=== PATIENT | male | born 1995 | race Caucasian/White ===

== ENCOUNTER 2016-09-16 16:28 | Inpatient (IN) | payer BC ==
[2016-09-16 16:39] VITALS: BMI 35.3
--- NOTE | 2016-09-16 18:00 | PDOC ---
History of Present Illness - General Chief Complaint: Pain Stated Complaint: STOMACH PAIN ? gall stones Time Seen by Provider: 09/16/16 17:42 History Source: Patient Exam Limitations: No Limitations - History of Present Illness Initial Comments: 09/16/16 17:54 Patient is a 21 year old male with PMH of Sleeve gastrectomy in November 2014 who presents to ED with severe epigastric pain. He states the pain started after he ate Ribs w/ rice & beans yesterday. He woke up this morning with mild pain, ate cereal for breakfast and later on today the pain increased and is now severe. It is epigastric but radiates towards his right side. He describes it as sharp, 10/10 in severity, mildly alleviated by laying flat and exacerbated with movement and deep breaths. He also describes having some chills, nausea and lightheadedness as well. Patient denies fever, SNYDER, CP, SOB, vomiting, constipation, diarrhea or any sick contacts. He was in this ED in march for similar symptoms. US showed gallstones in fundus as well as a possible mass. Patient was strongly urged to f/u with GI & Surgical specialists but states "he never got around to it". Past History - Travel Traveled outside of the country in the last 30 days: No Close contact w/someone who was outside of country & ill: No - Past Medical History Allergies/Adverse Reactions: Allergies Allergy/AdvReac Type Severity Reaction Status Date / Time No Known Allergies Allergy Verified 09/16/16 16:35 Home Medications: Ambulatory Orders NK [No Known Home Medication] 04/21/16 Other medical history: morbid obestiy,gall stones - Surgical History Abdominal Surgery: Yes (Gastric sleeve, 12/04/2014) - Immunization History Immunization Up to Date: Yes - Psycho/Social/Smoking Cessation Hx Anxiety: No Suicidal Ideation: No Smoking Status: Yes (Hookah) Smoking History: Never smoked Have you smoked in the past 12 months: Yes Information on smoking cessation initiated: No Hx Alcohol Use: No Drug/Substance Use Hx: No Substance Use Type: None Review of Systems - Review of Systems Able to Perform ROS?: Yes Is the patient limited Serbian proficient: No Constitutional: Yes: Chills, Loss of Appetite ABD/GI: Yes: Nausea, Abdominal cramping Neurological: Yes: Dizziness *Physical Exam - Vital Signs Last Vital Signs Temp Pulse Resp BP Pulse Ox 97.8 F 74 18 135/88 100 09/16/16 16:36 09/16/16 16:36 09/16/16 16:36 09/16/16 16:36 09/16/16 16:36 - Physical Exam General Appearance: Yes: Appropriately Dressed, Apparent Distress, Obese HEENT: positive: EOMI, PHANI, Normal ENT Inspection Neck: positive: Trachea midline, Normal Thyroid, Supple Respiratory/Chest: positive: Lungs Clear, Normal Breath Sounds Cardiovascular: positive: Regular Rhythm, Regular Rate, S1, S2 Gastrointestinal/Abdominal: positive: Normal Bowel Sounds, Tender, Soft, Other ( (+) Alvarado Sign) Musculoskeletal: positive: Normal Inspection Extremity: positive: Normal Inspection, Normal Range of Motion Integumentary: positive: Normal Color, Dry, Warm Neurologic: positive: Fully Oriented, Alert, Normal Mood/Affect, Motor Strength 5/5 ED Treatment Course - LABORATORY CBC & Chemistry Diagram: 09/16/16 18:20 09/16/16 18:20 Medical Decision Making - Medical Decision Making 09/16/16 18:09 Ordered CBC, CMP, Amylase, Lipase, Blood Cx. Abdominal US ordered. Patient made NPO. Started IVF NS, Zofran and Morphine. *DC/Admit/Observation/Transfer Diagnosis at time of Disposition: Biliary colic
[2016-09-16] MEDS ORDERED: SODIUM CHLORIDE 1,000 ML IV STA (18:02)
[2016-09-16] MEDS ORDERED: ONDANSETRON 4 MG/2 ML VIAL IVPUSH ONE (18:08)
[2016-09-16] MEDS ORDERED: morphine CARPU-JECT 4 MG/1 ML DISP.SYRIN IVPUSH ONE ×2 (18:08→19:59)
[2016-09-16] MEDS ORDERED: morphine CARPU-JECT 4 MG/1 ML DISP.SYRIN ONE ×2 (18:26→19:48)
[2016-09-16] MEDS ORDERED: ONDANSETRON 4 MG/2 ML VIAL ONE (18:26)
[2016-09-16 18:41] LABS: BASOPHIL 0.7 % (0-2.0); EOSINOPHIL 0.4 % (0-4.5); MCHC 33.7 g/dl (32.0-35.9); MEAN CELL VOLUME 83.1 fl (80-96); MEAN PLT VOLUME 9.8 fl (7.5-11.1); NEUTROPHILS 81.1 % (42.8-82.8); PLATELET COUNT 203 K/MM3 (134-434); RDW 14.1 % (11.9-15.9); WHITE BLOOD COUNT 15.2 K/mm3 (4.0-10.0)
--- NOTE | 2016-09-16 18:44 | PDOC ---
Attending Attestation - Resident Resident Name: Sudhakar Gomez - ED Attending Attestation I have performed the following: I have examined & evaluated the patient, The case was reviewed & discussed with the resident, I agree w/resident's findings & plan, Exceptions are as noted - HPI HPI: 09/16/16 18:43 21-year-old male with past mental history of gastric sleeve performed 2 years ago, gallbladder stones presents to the emergency department for right upper quadrant pain after eating [place] food yesterday. Reports some nausea and vomiting but denies fevers. Pain is constant. - Physicial Exam PE: 09/16/16 18:44 GENERAL: Awake, alert, and fully oriented, in no acute distress. HEAD: No signs of trauma EYES: PERRLA, EOMI, sclera anicteric, conjunctiva clear ENT: Auricles normal inspection, hearing grossly normal, nares patent, oropharynx clear without exudates. NECK: Normal ROM, supple, no lymphadenopathy, JVD, or masses LUNGS: Breath sounds equal, clear to auscultation bilaterally. No wheezes, and no crackles HEART: Regular rate and rhythm, normal S1 and S2, no murmurs, rubs or gallops ABDOMEN: TTP epigastric and RUQ. Alvarado sign positive. Soft, normoactive bowel sounds. No guarding, no rebound. No masses EXTREMITIES: Normal range of motion, no edema. No clubbing or cyanosis. No cords, erythema, or tenderness NEUROLOGICAL: Cranial nerves II through XII grossly intact. Normal speech, normal gait SKIN: Warm, Dry, normal turgor, no rashes or lesions noted. - Medical Decision Making 09/16/16 18:44 We'll need to rule out acute cholecystitis versus biliary colic. Low threshold CAT scan to rule out bariatric complications. Labs, pain control. Start with ultrasound.
[2016-09-16 18:53] LABS: URINE APPEARANCE CLEAR; URINE COLOR YELLOW; URINE GLUCOSE (UA) NEGATIVE (NEGATIVE)
[2016-09-16 18:54] LABS: URINE BILIRUBIN NEGATIVE (NEGATIVE); URINE BLOOD NEGATIVE (NEGATIVE); URINE KETONE NEGATIVE (NEGATIVE); URINE NITRITE NEGATIVE (NEGATIVE); URINE PROTEIN NEGATIVE (NEGATIVE); URINE UROBILINOGEN 4.0 E.U/dl E.U./dl (0.2-1.0)
[2016-09-16 18:55] LABS: URINE LEUK ESTERASE NEGATIVE (NEGATIVE)
[2016-09-16 19:04] LABS: ALBUMIN 4.1 g/dl (3.4-5.0); AMYLASE 46 U/L (25-115); ANION GAP 10 (8-16); CALCIUM 9.3 mg/dL (8.5-10.1); CO2 30 mmol/L (21-32); CREATININE 0.8 mg/dL (0.7-1.3); GLUCOSE,RANDOM 97 mg/dL (74-106); SGPT/ALT 45 U/L (12-78)
[2016-09-16 19:05] LABS: ALK PHOS 103 U/L (45-117); BILIRUBIN,TOTAL 1.3 mg/dL (0.2-1.0); TOT PROT 8.1 g/dl (6.4-8.2)
[2016-09-16 19:06] LABS: SGOT/AST 102 U/L (15-37)
[2016-09-16] MEDS ORDERED: PIPERACILLIN/TAZOB 3.375 GM/50 ML PRE-DOCKED IVPB ONE (21:02)
[2016-09-16] MEDS ORDERED: PIPERACILLIN/TAZOB 3.375 GM 50 ML IVPB ONE (21:17)
--- NOTE | 2016-09-16 21:20 | PDOC ---
*Physical Exam - Vital Signs Last Vital Signs Temp Pulse Resp BP Pulse Ox 97.8 F 74 18 135/88 100 09/16/16 16:36 09/16/16 16:36 09/16/16 16:36 09/16/16 16:36 09/16/16 16:36 <Stephon Chaparro - Last Filed: 09/16/16 21:19> - Vital Signs Last Vital Signs Temp Pulse Resp BP Pulse Ox 97.8 F 74 18 135/88 100 09/16/16 16:36 09/16/16 16:36 09/16/16 16:36 09/16/16 16:36 09/16/16 16:36 <[email or web address] - Last Filed: 09/16/16 21:55> ED Treatment Course - LABORATORY CBC & Chemistry Diagram: 09/16/16 18:20 09/16/16 18:20 - ADDITIONAL ORDERS Additional order review: Laboratory Results 09/16/16 09/16/16 18:24 18:20 Sodium 139 Potassium 4.4 Chloride 99 Carbon Dioxide 30 Anion Gap 10 BUN 10 Creatinine 0.8 Creat Clearance w eGFR > 60 Random Glucose 97 Calcium 9.3 Total Bilirubin 1.3 H AST 102 H D ALT 45 D Alkaline Phosphatase 103 Total Protein 8.1 Albumin 4.1 Total Amylase 46 Lipase 101 Urine Color Yellow Urine Appearance Clear Urine pH 5.0 Ur Specific Dorena 1.017 Urine Protein Negative Urine Glucose (UA) Negative Urine Ketones Negative Urine Blood Negative Urine Nitrite Negative Urine Bilirubin Negative Urine Urobilinogen 4.0 e.u/dl Ur Leukocyte Esterase Negative 09/16/16 18:20 RBC 5.72 H MCV 83.1 MCHC 33.7 RDW 14.1 D MPV 9.8 Neutrophils % 81.1 Lymphocytes % 12.2 Monocytes % 5.6 Eosinophils % 0.4 D Basophils % 0.7 - RADIOLOGY Radiology Studies Ordered: Category Date Time Status HIDA SCAN [NM] Stat Nuclear 09/16/16 21:01 Ordered - Medications Given in the ED: ED Medications Discontinued Medications Generic Name Dose Route Start Last Admin Trade Name Freq PRN Reason Stop Dose Admin Sodium Chloride 1,000 mls @ 1,000 mls/hr 09/16/16 18:02 09/16/16 18:41 Normal Saline - IV 09/16/16 19:01 1,000 mls/hr ASDIR STA Administration Morphine Sulfate 4 mg 09/16/16 18:08 09/16/16 18:41 Morphine Injection - IVPUSH 09/16/16 18:09 4 mg ONCE ONE Administration Morphine Sulfate 4 mg 09/16/16 19:59 09/16/16 20:03 Morphine Injection - IVPUSH 09/16/16 20:00 4 mg ONCE ONE Administration Ondansetron HCl 4 mg 09/16/16 18:08 09/16/16 18:41 Zofran Injection IVPUSH 09/16/16 18:09 4 mg ONCE ONE Administration Piperacillin Sod/Tazobactam Sod 3.375 gm 09/16/16 21:02 09/16/16 21:17 Zosyn 3.375gm Ivpb (Pre-Docked) IVPB 09/16/16 21:03 3.375 gm ONCE ONE Administration <Stephon Chaparro - Last Filed: 09/16/16 21:19> - LABORATORY CBC & Chemistry Diagram: 09/16/16 18:20 09/16/16 18:20 - ADDITIONAL ORDERS Additional order review: Laboratory Results 09/16/16 09/16/16 18:24 18:20 Sodium 139 Potassium 4.4 Chloride 99 Carbon Dioxide 30 Anion Gap 10 BUN 10 Creatinine 0.8 Creat Clearance w eGFR > 60 Random Glucose 97 Calcium 9.3 Total Bilirubin 1.3 H AST 102 H D ALT 45 D Alkaline Phosphatase 103 Total Protein 8.1 Albumin 4.1 Total Amylase 46 Lipase 101 Urine Color Yellow Urine Appearance Clear Urine pH 5.0 Ur Specific Dorena 1.017 Urine Protein Negative Urine Glucose (UA) Negative Urine Ketones Negative Urine Blood Negative Urine Nitrite Negative Urine Bilirubin Negative Urine Urobilinogen 4.0 e.u/dl Ur Leukocyte Esterase Negative 09/16/16 18:20 RBC 5.72 H MCV 83.1 MCHC 33.7 RDW 14.1 D MPV 9.8 Neutrophils % 81.1 Lymphocytes % 12.2 Monocytes % 5.6 Eosinophils % 0.4 D Basophils % 0.7 - RADIOLOGY Radiograph Interpretation: 09/16/16 21:54 Abdominal ultrasound as reviewed by Dr. Moreira reports cholelithiasis. - Medications Given in the ED: ED Medications Discontinued Medications Generic Name Dose Route Start Last Admin Trade Name Freq PRN Reason Stop Dose Admin Sodium Chloride 1,000 mls @ 1,000 mls/hr 09/16/16 18:02 09/16/16 18:41 Normal Saline - IV 09/16/16 19:01 1,000 mls/hr ASDIR STA Administration Morphine Sulfate 4 mg 09/16/16 18:08 09/16/16 18:41 Morphine Injection - IVPUSH 09/16/16 18:09 4 mg ONCE ONE Administration Morphine Sulfate 4 mg 09/16/16 19:59 09/16/16 20:03 Morphine Injection - IVPUSH 09/16/16 20:00 4 mg ONCE ONE Administration Ondansetron HCl 4 mg 09/16/16 18:08 09/16/16 18:41 Zofran Injection IVPUSH 09/16/16 18:09 4 mg ONCE ONE Administration Piperacillin Sod/Tazobactam Sod 3.375 gm 09/16/16 21:02 09/16/16 21:17 Zosyn 3.375gm Ivpb (Pre-Docked) IVPB 09/16/16 21:03 3.375 gm ONCE ONE Administration <Ariane Lemus - Last Filed: 09/16/16 21:55> Medical Decision Making - Medical Decision Making 09/16/16 21:19 Ultrasound with gallstones. CBC, BMP 09/16/16 18:20 09/16/16 18:20 CMP Sodium 139 mmol/L (136-145) 09/16/16 18:20 Potassium 4.4 mmol/L (3.5-5.1) 09/16/16 18:20 Chloride 99 mmol/L (98-107) 09/16/16 18:20 Carbon Dioxide 30 mmol/L (21-32) 09/16/16 18:20 Anion Gap 10 (8-16) 09/16/16 18:20 BUN 10 mg/dL (7-18) 09/16/16 18:20 Creatinine 0.8 mg/dL (0.7-1.3) 09/16/16 18:20 Creat Clearance w eGFR > 60 (>60) 09/16/16 18:20 Random Glucose 97 mg/dL (74-106) 09/16/16 18:20 Calcium 9.3 mg/dL (8.5-10.1) 09/16/16 18:20 Total Bilirubin 1.3 mg/dL (0.2-1.0) H 09/16/16 18:20 AST 102 U/L (15-37) H D 09/16/16 18:20 ALT 45 U/L (12-78) D 09/16/16 18:20 Alkaline Phosphatase 103 U/L (45-117) 09/16/16 18:20 Total Protein 8.1 g/dl (6.4-8.2) 09/16/16 18:20 Albumin 4.1 g/dl (3.4-5.0) 09/16/16 18:20 Total Amylase 46 U/L (25-115) 09/16/16 18:20 Lipase 101 U/L (73-393) 09/16/16 18:20 WBC 15.2. Will need HIDA scan for further evaluation. Terese ordered. Had attempted to call Dr. Olson's service. Service had a busy tones. Multiple attempts were made. Tried calling Dr. Sharma's service, but was same number. Page placed out to Dr. Burton. 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 Case discussed with Dr. Graham. She accepts for med/surg obs. Case discussed in detail with admitting physician including history, physical exam and ancillary studies. Admitting physician has assumed care for the patient, will follow all pending diagnostics and will complete the evaluation and treatment. <Stephon Cahparro - Last Filed: 09/16/16 21:19> - Medical Decision Making 09/16/16 20:10, 20:35 Multiple phone calls placed to Dr. Olson via . However, unable to reach the answering service because the phone is off the hook. There are no other phone numbers to contact him with. Spoke to Dr. Odonnell and was advised to call Dr. Burton. 20:[address] Burton on his cell phone. Call was returned promptly and case was discussed. 20:50 Microblog sent to [facility] and case was discussed. Pt seen in ED. <Ariane Lemus - Last Filed: 09/16/16 21:55> *DC/Admit/Observation/Transfer - Discharge Dispostion Admit: Yes <Stephon Chaparro - Last Filed: 09/16/16 21:19> - Attestations Scribe Attestion: 09/16/16 21:54 Documentation prepared by Ariane Lemus, acting as medical accountant for Stephon Chaparro MD. <Ariane Lemus - Last Filed: 09/16/16 21:55> Diagnosis at time of Disposition: Biliary colic
[2016-09-16] MEDS ORDERED: morphine CARPU-JECT 2 MG/1 ML DISP.SYRIN IVPUSH PRN (22:41)
[2016-09-16] MEDS ORDERED: ONDANSETRON 4 MG/2 ML VIAL IVPB PRN (22:41)
[2016-09-16] MEDS: DEXTROSE 5%-NORMAL SALINE 1,000 ML IV SCH (22:59)
--- NOTE | 2016-09-16 23:28 | HP ---
<Marine Michel - Last Filed: 09/17/16 00:31> CHIEF COMPLAINT: Abdominal pain x1 day. PCP: N/A HISTORY OF PRESENT ILLNESS: The patient is a 23 yo M with prior hx of cholelithiasis, that presents to the ED complaining of RUQ abdominal pain 10/10 in intensity, episodic, associated with nausea. The pain is similar to the episode he had in Mar 2013 when he was originally diagnosed with cholelithiasis and was advised to get elective cholecystectomy. He denies fevers, chills, diarrhea, constipation, vomiting. No hx of reaction to anesthesia in the family, [place] or CVA. Recent Travel: None PAST MEDICAL HISTORY: Obesity PAST SURGICAL HISTORY: Gastric Sleeve November Social History: Smoking: Hookah smoker Alcohol: Denies Drugs: Denies Family History: Noncontributory Allergies No Known Allergies Allergy (Verified 09/16/16 16:35) HOME MEDICATIONS: Medication Instructions Recorded NK [No Known Home Medication] 04/21/16 REVIEW OF SYSTEMS CONSTITUTIONAL: Absent: fever, chills, diaphoresis, generalized weakness, malaise, loss of appetite, weight change HEENT: Absent: rhinorrhea, nasal congestion, throat pain, throat swelling, difficulty swallowing, mouth swelling, ear pain, eye pain, visual changes CARDIOVASCULAR: Absent: chest pain, syncope, palpitations, irregular heart rate, lightheadedness , peripheral edema RESPIRATORY: Absent: cough, shortness of breath, dyspnea with exertion, orthopnea, wheezing, stridor, hemoptysis GASTROINTESTINAL: + abdominal pain. + nausea. Absent: abdominal distension, vomiting, diarrhea, constipation, melena, hematochezia GENITOURINARY: Absent: dysuria, frequency, urgency, hesitancy, hematuria, flank pain, genital pain MUSCULOSKELETAL: Absent: myalgia, arthralgia, joint swelling, back pain, neck pain SKIN: Absent: rash, itching, pallor HEMATOLOGIC/IMMUNOLOGIC: Absent: easy bleeding, easy bruising, lymphadenopathy, frequent infections ENDOCRINE: Absent: unexplained weight gain, unexplained weight loss, heat intolerance, cold intolerance NEUROLOGIC: Absent: headache, focal weakness or paresthesias, dizziness, unsteady gait, seizure, mental status changes, bladder or bowel incontinence PSYCHIATRIC: Absent: anxiety, depression, suicidal or homicidal ideation, hallucinations. PHYSICAL EXAMINATION GENERAL: + Obese. Awake, alert, and fully oriented, in no acute distress. HEAD: Normal with no signs of trauma. EYES: Pupils equal, round and reactive to light, extraocular movements intact, sclera anicteric, conjunctiva clear. No lid lag. EARS, NOSE, THROAT: Ears normal, nares patent, oropharynx clear without exudates. Moist mucous membranes. NECK: Normal range of motion, supple without lymphadenopathy, JVD, or masses. LUNGS: Breath sounds equal, clear to auscultation bilaterally. No wheezes, and no crackles. No accessory muscle use. HEART: Regular rate and rhythm, normal S1 and S2 without murmur, rub or gallop. ABDOMEN: + RUQ tenderness to palpation with positive lubin sign. No guarding, no rebound, no masses. No hepatomegaly or splenomegaly. MUSCULOSKELETAL: Normal range of motion at all joints. No bony deformities or tenderness. No CVA tenderness. UPPER EXTREMITIES: 2+ pulses, warm, well-perfused. No cyanosis. No clubbing. Cap refill <2 seconds. No peripheral edema. LOWER EXTREMITIES: 2+ pulses, warm, well-perfused. No calf tenderness. No peripheral edema. NEUROLOGICAL: Cranial nerves II-XII intact. Normal speech. Normal gait. PSYCHIATRIC: Cooperative. Good eye contact. Appropriate mood and affect. SKIN: Warm, dry, normal turgor, no rashes or lesions noted. Imaging: US- Limited Adbomen Cholelithiasis. There is no definite evidence of acute cholecystitis. Early acute cholecystitis may not be demonstrable on sonography or CT. No biliary tract dilatation is identified. Gallbladder US Enlarged liver. Adherent debris/stones in the fundus and possibility of mass cannot be fully excluded. ASSESSMENT/PLAN: 1.) Biliary colic in otherwise healthy patient with prior hx of cholelithiasis. US shows no evidence of any acute cholelithiasis however patient does have mild leukocytosis and elevation of bilirubin levels. - NPO - IVF - Pain control with IV narcotics - HIDA scan - Monitor liver enzymes and bilirubin level in the AM - Will call surgical evaluation if HIDA scan is abnormal for possible laparoscopic cholecystectomy 2.) DVT PPx - SCDs, patient is ambulatory Admit for observation. Documentation prepared by Marine Michel, acting as registered medical assistant for Charis Graham MD. <Charis Graham - Last Filed: 09/17/16 03:44> Visit type - Emergency Visit Emergency Visit: Yes ED Registration Date: 09/16/16 Care time: The patient presented to the Emergency Department on the above date and was hospitalized for further evaluation of their emergent condition. - New Patient This patient is new to me today: Yes Date on this admission: 09/16/16 - Critical Care Critical Care patient: No
[2016-09-17] MEDS ORDERED: PIPERACILLIN/TAZOB 2.25 GM 50 ML IVPB SCH (06:00)
[2016-09-17 08:01] LABS: BASOPHIL 0.4 % (0-2.0); EOSINOPHIL 0.7 % (0-4.5); MCH 28.3 pg (25.7-33.7); MCHC 34.1 g/dl (32.0-35.9); MEAN CELL VOLUME 82.9 fl (80-96); MEAN PLT VOLUME 10.1 fl (7.5-11.1); NEUTROPHILS 71.4 % (42.8-82.8); PLATELET COUNT 158 K/MM3 (134-434); RDW 13.7 % (11.9-15.9); WHITE BLOOD COUNT 6.8 K/mm3 (4.0-10.0)
[2016-09-17 08:35] LABS: ALBUMIN 3.3 g/dl (3.4-5.0); ANION GAP 8 (8-16); CALCIUM 8.6 mg/dL (8.5-10.1); CO2 28 mmol/L (21-32); CREATININE 0.8 mg/dL (0.7-1.3); GLUCOSE,RANDOM 83 mg/dL (74-106); SGOT/AST 116 U/L (15-37); SGPT/ALT 76 U/L (12-78)
[2016-09-17 08:37] LABS: ALK PHOS 98 U/L (45-117); BILIRUBIN,TOTAL 1.7 mg/dL (0.2-1.0); TOT PROT 6.8 g/dl (6.4-8.2)
[2016-09-17] MEDS: DEXTROSE 5%-NORMAL SALINE 1,000 ML IV SCH (08:56)
--- NOTE | 2016-09-17 08:59 | PN ---
Progress Note (short form) - Note Progress Note: ID Severe RUQ pain 2nd such episode told it was his gallbladder Selected Entries 09/17/16 07:14 Temperature 98.5 F Pulse Rate 55 L Respiratory 18 Rate Blood Pressure 129/57 Abd Soft tenderness RUQ Ryan positive Laboratory Tests 09/16/16 09/16/16 09/17/16 18:20 18:24 06:30 WBC 15.2 H Hgb 16.0 Hct 47.5 Plt Count 203 BUN 7 D Creatinine 0.8 ALT 76 D Ur Leukocyte Esterase Negative Assessment biliary disease ? passed stone/ Cholcystitis Plan Ceftriaxone and metronidazole Dr Olson to see for cholecystectomy Zi SANDS Problem List - Problems (1) Cholecystitis Code(s): K81.9 - CHOLECYSTITIS, UNSPECIFIED (2) Obesity Code(s): E66.9 - OBESITY, UNSPECIFIED
--- NOTE | 2016-09-17 09:18 | PN ---
Progress Note, Physician - Current Medication List Current Medications: Active Medications Dextrose/Sodium Chloride (D5-Ns -) 1,000 mls @ 125 mls/hr IV ASDIR DYLON Last Admin: 09/17/16 08:56 Dose: 125 mls/hr Ceftriaxone Sodium (Rocephin 2gm Ivpb (Pre-Docked)) 100 mls @ 200 mls/hr IVPB DAILY DYLON Metronidazole (Flagyl 500mg Premixed Ivpb -) 100 mls @ 100 mls/hr IVPB Q8H-IV DYLON Morphine Sulfate (Morphine Injection -) 1 mg IVPUSH Q4H PRN PRN Reason: PAIN Ondansetron HCl (Zofran Injection) 4 mg IVPB Q4H PRN PRN Reason: NAUSEA AND/OR VOMITING - Objective Vital Signs: Vital Signs Temperature 98.5 F 09/17/16 07:14 Pulse Rate 55 L 09/17/16 07:14 Respiratory Rate 18 09/17/16 07:14 Blood Pressure 129/57 09/17/16 07:14 O2 Sat by Pulse Oximetry (%) 100 09/16/16 16:36 Eyes: Yes: WNL, Conjunctiva Clear HENT: Yes: WNL, Atraumatic, Normocephalic Neck: Yes: WNL, Supple, Trachea Midline Cardiovascular: Yes: WNL, Regular Rate and Rhythm Respiratory: Yes: WNL, Regular, CTA Bilaterally Gastrointestinal: Yes: WNL, Normal Bowel Sounds Musculoskeletal: Yes: WNL Extremities: Yes: WNL Edema: No Integumentary: Yes: WNL Neurological: Yes: WNL, Alert, Oriented ...Motor Strength: WNL Psychiatric: Yes: WNL Labs: CBC, BMP 09/17/16 06:30 09/17/16 06:30 Impression/Plan Impression/Plan: 21 year old with gastric sleeve admitted for billiary colic -has known history of cholelithiasis and had billiary colic 6 months ago -again presents with identical symptoms -no evidence of cholycystisis on sono -for lap julien later today Visit type - Emergency Visit Emergency Visit: Yes ED Registration Date: 09/16/16 Care time: The patient presented to the Emergency Department on the above date and was hospitalized for further evaluation of their emergent condition. - New Patient This patient is new to me today: Yes Date on this admission: 09/17/16 - Critical Care Critical Care patient: No
--- NOTE | 2016-09-17 09:24 | CONSULT ---
Consult Consult Specialty:: Surgery Reason for Consultation:: Acute cholecystitis, recurrent biliary colic - History of Present Illness History of Present Illness: 21 male s/p sleeve gastrectomy in 2015 Presents for RUQ pain x 1- 2days Had similar episode in the past Was advised to have cholecystectomy but never followed up with surgery + Nausea - History Source History Provided By: Patient, Medical Record Limitations to Obtaining History: No Limitations - Past Surgical History Additional Surgical History: sleeve gastrectomy - Alcohol/Substance Use Hx Alcohol Use: No - Smoking History Smoking history: Never smoked Have you smoked in the past 12 months: Yes - Social History ADL: Independent Home Medications - Allergies Allergies/Adverse Reactions: Allergies Allergy/AdvReac Type Severity Reaction Status Date / Time No Known Allergies Allergy Verified 09/16/16 16:35 - Home Medications Home Medications: Ambulatory Orders Oxycodone HCl/Acetaminophen [Percocet 5-325 mg Tablet] 1 - 2 tab PO Q6H #28 tab MDD 4 09/17/16 Family Disease History - Family Disease History Family History: Unremarkable Review of Systems - Review of Systems Constitutional: denies: Chills, Fever Neck: reports: No Symptoms Cardiovascular: denies: Chest Pain Respiratory: denies: Cough Gastrointestinal: reports: Abdominal Pain (RUQ), Nausea. denies: Diarrhea Genitourinary: reports: No Symptoms Neurological: denies: Change in LOC Pain Intensity: 5 Physical Exam Vital Signs: Vital Signs Temperature 98.5 F 09/17/16 07:14 Pulse Rate 55 L 09/17/16 07:14 Respiratory Rate 18 09/17/16 07:14 Blood Pressure 129/57 09/17/16 07:14 O2 Sat by Pulse Oximetry (%) 100 09/16/16 16:36 Constitutional: Yes: Calm Neck: Yes: Supple Cardiovascular: Yes: Regular Rate and Rhythm Respiratory: Yes: CTA Bilaterally Gastrointestinal: Yes: Soft, Tenderness (RUQ). No: Distention, Tenderness, Rebound Neurological: Yes: Alert, Oriented Labs: CBC, BMP 09/17/16 06:30 09/17/16 06:30 Imaging - Results Ultrasound: Report Reviewed, Image Reviewed Problem List - Problems (1) Acute cholecystitis due to biliary calculus Code(s): K80.00 - CALCULUS OF GALLBLADDER W ACUTE CHOLECYST W/O OBSTRUCTION (2) Recurrent biliary colic Code(s): K80.20 - CALCULUS OF GALLBLADDER W/O CHOLECYSTITIS W/O OBSTRUCTION Assessment/Plan 21 male with acute cholecystitis, recurrent biliary colic NPO Antibiotics For Laparoscopic possible open cholecystectomy Risks and benefits explained Understands and agrees
[2016-09-17] MEDS ORDERED: METRONIDAZOLE 500 MG PREMIXED 100 ML IVPB SCH (10:00)
[2016-09-17] MEDS ORDERED: CEFTRIAXONE 100 ML IVPB SCH (10:00)
--- NOTE | 2016-09-17 10:12 | CONS ---
DATE OF CONSULTATION: HISTORY: This is a 21-year-old male admitted through the emergency room with chief complaint of severe 10/10 abrupt onset of pain predominantly in the right upper quadrant associated with nausea. He has a history of a gastric sleeve operation in 2014 while he was staying with family in the [place] area. At that time, he weighed nearly 550 pounds. He describes a similar episode of pain to the one he comes with now several years ago and was told he had gallstones and advised a cholecystectomy. He had no further follow up for this problem now. He denies any fever or chills at the current time and notes that he still has pain, although it has subsided somewhat since admission. PAST MEDICAL HISTORY: Includes obesity with gastric sleeve surgery. CURRENT MEDICATIONS: None. RECENT TRAVEL: None. SOCIAL HISTORY: Smokes a hookah. No history of substance abuse. HIV tested recently negative. Denies alcohol or drugs. 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 Lives with his family. FAMILY HISTORY: Noncontributory. REVIEW OF SYSTEMS: Noncontributory all systems. PHYSICAL EXAMINATION: General: He is an alert male in no acute distress. Vital Signs: Temperature 98.5, pulse 55, blood pressure 130/57, respirations 18. Skin: Anicteric. Lungs: Clear. Heart: S1, S2. Regular rhythm. Abdomen: Obese. Positive bowel sounds. Soft, nontender. Tenderness noted in the right upper quadrant with positive Alvarado sign elicited. The bilirubin was 1.7 with an AST of 116, ALT 76, alkaline phosphatase 98, white count 15.2, hemoglobin 16, platelets 203. Urinalysis negative for leukocyte esterase. Two sets of blood cultures drawn. ASSESSMENT: A 21-year-old male with a history of morbid obesity status post gastric sleeve operation 2014 in [place] who presents now with recurrent episode of right upper quadrant pain with possible Alvarado sign and white count and elevated liver enzymes. The possibility of passing a gallstone and/or acute cholecystitis considered. Advised empiric therapy with ceftriaxone and metronidazole. Suspect patient going to require cholecystectomy. A surgical consult has been requested. ANGELA LEMONS M.D. MIRNA/[id number]
[2016-09-17] MEDS ORDERED: HYDROmorphone HCL CARPU-JECT 1 MG/1 ML DISP.SYRIN IVPB PRN ×2 (12:33→15:07)
[2016-09-17] MEDS ORDERED: SODIUM CHLORIDE 1,000 ML IV SCH (12:45)
[2016-09-17] MEDS ORDERED: PROPOFOL 20 ML ONE (12:45)
[2016-09-17] MEDS ORDERED: ROCURONIUM BROMIDE 50 MG/5 ML VIAL ONE (12:46)
[2016-09-17] MEDS ORDERED: GLYCOPYRROLATE 0.2 MG/1 ML VIAL ONE ×2 (13:38)
[2016-09-17] MEDS ORDERED: NEOSTIGMINE METHYLSULFATE 0.5 MG/ML - 10 ML MDV ONE (13:38)
[2016-09-17] MEDS ORDERED: DEXAMETHASONE SOD PHOSPHATE 4 MG/1 ML VIAL ONE (13:39)
[2016-09-17] MEDS ORDERED: KETOROLAC TROMETHAMINE 30 MG/1 ML VIAL ONE (13:39)
[2016-09-17] MEDS ORDERED: BUPIVACAINE HCL/PF 0.5% (5MG/ML) 10 ML VIAL ONE (14:08)
[2016-09-17] MEDS ORDERED: BUPIVACAINE HCL/PF 0.5% (5MG/ML) 10 ML VIAL IJ ONE (14:12)
--- NOTE | 2016-09-17 14:24 | OP ---
Operative Note - Note: Operative Date: 09/17/16 Pre-Operative Diagnosis: Acute cholecystitis, recurrent biliary colic Operation: Laparoscopic cholecystectomy, lysis of adhesions Post-Operative Diagnosis: Other (Acute cholecystitis, recurrent biliary colic, intraabdominal adhesions) Surgeon: Joao Olson Public Speaking Teacher: Cora Kessler Anesthesia: General Specimens Removed: Gallbladder Estimated Blood Loss (mls): 30 Operative Report Dictated: Yes
[2016-09-17] MEDS ORDERED: ONDANSETRON 4 MG/2 ML VIAL IVPUSH PRN (14:25)
[2016-09-17] MEDS ORDERED: PROMETHAZINE HCL 25 MG/1 ML VIAL IVPUSH PRN (14:25)
[2016-09-17] MEDS ORDERED: oxyCODONE HCL 5 MG TABLET PO PRN (14:25)
--- NOTE | 2016-09-17 15:01 | SURG ---
Surgery Heel Cementer Machine Note Heel Cementer Machine: Cora Kessler PA-C Date of Service: 09/17/16 Diagnosis: Acute cholecystitis, recurrent biliary colic Procedure: Laparoscopic cholecystectomy, lysis of adhesions I was present for the entirety of the operative procedure. For further detail, please refer to operative report. Visit type - Case Type Case Type: ED Admission - New patient This patient is new to me today: Yes Date on this admission: 09/17/16
[2016-09-17] MEDS ORDERED: ONDANSETRON 4 MG/2 ML VIAL IVPB PRN (15:07)
[2016-09-17] MEDS: SODIUM CHLORIDE 1,000 ML IV SCH (15:55)
--- NOTE | 2016-09-17 16:01 | OP ---
OPERATIVE REPORT DATE OF OPERATION: 09/17/2016 PROCEDURE: Laparoscopic cholecystectomy and laparoscopic lysis of adhesions SURGEON: Joao Olson MD [employer] OFFICER: Cora Kessler PREOPERATIVE DIAGNOSIS: Acute cholecystitis. POSTOPERATIVE DIAGNOSIS: Acute cholecystitis and intraabdominal adhesions. SPECIMEN: Gallbladder. ESTIMATED BLOOD LOSS: 30 mL DRAINS: None. ANESTHESIA: GET. REASON FOR PROCEDURE: This is a 21-year-old gentleman who had a previous history of a sleeve gastrectomy in March 2015 in [place]. He had since developed symptoms of cholecystitis and biliary colic in the past but had never pursued surgical intervention. He presents to the emergency room with right upper quadrant pain. Imaging demonstrates gallstones and findings consistent with acute cholecystitis. He was admitted by the hospital service. Because of his findings of cholecystitis and recurrent colic , he was consented for a laparoscopic cholecystectomy and possible open. The risks and benefits of the procedure were explained. These included bleeding, infection, hernia, HI, DVT, PE, injury to surrounding structures including the bowel, colon , liver, bile ducts, nerve injury, vessel injury, retained stones, bile leak as some other complications. He understood and signed informed consent. DESCRIPTION OF PROCEDURE: Patient was placed supine on the operating room table. He underwent general endotracheal intubation. The abdomen was prepped and draped in the usual sterile fashion. A timeout was performed. A supraumbilical incision was made, and a 5-mm optical trocar was placed under direct visualization with the laparoscope. Pneumoperitoneum was established. Immediately, it was noted that there were dense omental adhesions overlying the right upper quadrant. Because of this, lysis of adhesions needed to be performed. In order to do this, a 5-mm optical trocar was placed in the left lateral abdominal wall. Using the harmonic scalpel, all adhesions were carefully lysed from the abdominal wall. These included adhesions as well as omentum densely adherent to the abdominal wall. No bowel or visceral injury was noted as the adhesions were adherent only to the omentum. After the window was created to gain access to the gallbladder in the right upper quadrant, a 5-mm trocar was placed in the subxiphoid area, and two 5-mm trocars were placed in the right subcostal region. The 5-mm supraumbilical trocar was replaced with a 12-mm trocar. The patient was placed in reverse Trendelenburg, right-side up position. The gallbladder was grasped cephalad and laterally. The overlying peritoneum was dissected. The cystic duct followed by the cystic artery was circumferentially dissected, clipped and transected. The gallbladder was removed from the liver bed using electrocautery. Hemostasis was achieved. The gallbladder was placed in an EndoCatch bag. Copious irrigation and suction was performed until clear. A Surgicel dressing was placed over the gallbladder fossa to aid with hemostasis. The gallbladder was removed via the supraumbilical trocar site. The fascia was then closed at the site using a 0 Vicryl suture with a Ras-Arturo device laparoscopically. Marcaine was injected at all incision sites. 3-0 Vicryl was used to close the deep layer at the 12-mm trocar site. All skin incisions were closed using 4-0 Biosyn. Sterile dressings were applied. The patient tolerated the procedure well and transferred to recovery room in stable condition. Brittany WELCH/[id number] MTDD
[2016-09-17] MEDS: METRONIDAZOLE 500 MG PREMIXED 100 ML IVPB SCH (17:15)
[2016-09-18] MEDS: SODIUM CHLORIDE 1,000 ML IV SCH ×2 (00:44→10:13)
[2016-09-18] MEDS: METRONIDAZOLE 500 MG PREMIXED 100 ML IVPB SCH (02:11)
[2016-09-18 08:59] LABS: BASOPHIL 0.2 % (0-2.0); EOSINOPHIL 0.2 % (0-4.5); MCH 28.6 pg (25.7-33.7); MCHC 34.5 g/dl (32.0-35.9); MEAN PLT VOLUME 10.2 fl (7.5-11.1); NEUTROPHILS 75.2 % (42.8-82.8); PLATELET COUNT 144 K/MM3 (134-434); RDW 13.9 % (11.9-15.9); WHITE BLOOD COUNT 8.9 K/mm3 (4.0-10.0)
--- NOTE | 2016-09-18 09:28 | PN ---
Progress Note, Physician Chief Complaint: ID Day 1 post op lap cholecystectomy Doing well - Current Medication List Current Medications: Active Medications Enoxaparin Sodium (Lovenox -) 40 mg SQ DAILY [facility] Hydromorphone HCl (Dilaudid Injection -) 1 mg IVPB Q4H PRN PRN Reason: PAIN Ceftriaxone Sodium (Rocephin 2gm Ivpb (Pre-Docked)) 100 mls @ 200 mls/hr IVPB DAILY [facility] Metronidazole (Flagyl 500mg Premixed Ivpb -) 100 mls @ 100 mls/hr IVPB Q8H-IV [facility] Last Admin: 09/18/16 02:11 Dose: 100 mls/hr Sodium Chloride (Normal Saline -) 1,000 mls @ 125 mls/hr IV ASDIR [facility] Last Admin: 09/18/16 00:44 Dose: 125 mls/hr Ondansetron HCl (Zofran Injection) 4 mg IVPB Q4H PRN PRN Reason: NAUSEA AND/OR VOMITING Oxycodone HCl (Roxicodone -) 10 mg PO Q4H PRN PRN Reason: SEVERE PAIN Stop: 09/18/16 14:24 - Objective Vital Signs: Vital Signs Temperature 97.7 F 09/18/16 06:52 Pulse Rate 71 09/18/16 06:52 Respiratory Rate 18 09/18/16 06:52 Blood Pressure 127/72 09/18/16 06:52 O2 Sat by Pulse Oximetry (%) 98 09/18/16 00:00 Constitutional: Yes: Well Nourished, No Distress Neck: Yes: WNL, Supple Cardiovascular: Yes: Regular Rate and Rhythm, S1, S2 Respiratory: Yes: WNL, Regular, CTA Bilaterally Gastrointestinal: Yes: Soft Labs: CBC, BMP 09/18/16 06:45 Problem List - Problems (1) Cholecystitis Code(s): K81.9 - CHOLECYSTITIS, UNSPECIFIED (2) Obesity Code(s): E66.9 - OBESITY, UNSPECIFIED Assessment/Plan Microbiology 09/16/16 18:26 Blood - Peripheral Venous Blood Culture - Preliminary NO GROWTH OBTAINED AFTER 24 HOURS, INCUBATION TO CONTINUE FOR 4 DAYS. 09/16/16 18:26 Blood - Peripheral Venous Blood Culture - Preliminary NO GROWTH OBTAINED AFTER 24 HOURS, INCUBATION TO CONTINUE FOR 4 DAYS. Laboratory Tests 09/18/16 09/18/16 06:45 06:45 WBC 8.9 D Hct 39.7 Plt Count 144 Total Bilirubin Pending AST Pending ALT Pending Assessment Acute cholecystitis Plan Discharge planning per Dr Olson Will stop antibiotic Zi SANDS
--- NOTE | 2016-09-18 09:55 | PN ---
Progress Note (short form) - Note Progress Note: General Surgery- Dr. Olson Patient seen and examined this morning. Patient is feeling well, states he has minimal pain. Patient is tolerating his diet, voiding without issue, ambulating. Patient states he feels ready to go home. Denies F/C/N/V. Last Vital Signs Temp Pulse Resp BP Pulse Ox 97.7 F 71 18 127/72 98 09/18/16 06:52 09/18/16 06:52 09/18/16 06:52 09/18/16 06:52 09/18/16 00:00 CBC, BMP 09/18/16 06:45 09/18/16 06:45 Hepatic Panel Total Bilirubin 0.9 mg/dL (0.2-1.0) D 09/18/16 06:45 AST 60 U/L (15-37) H D 09/18/16 06:45 ALT 75 U/L (12-78) 09/18/16 06:45 Alkaline Phosphatase 95 U/L (45-117) 09/18/16 06:45 Albumin 3.2 g/dl (3.4-5.0) L 09/18/16 06:45 PE: Gen: NAD, resting comfortably, pleasant and cooperative Abd: Obese, soft, nondistended, tender to palp around port sites, dressings clean/dry/intact <Cora Kessler - Last Filed: 09/18/16 12:45> - Note Progress Note: Agree POD 1 Laparoscopic cholecystectomy, lysis of adhesions Pain controlled Tolerating diet AVSS Abd soft WBC 8.9 H/H stable Bilirubin 0.9 Doing well Discharge home Follow u pin 1-2 weeks [phone] <Joao Olson - Last Filed: 09/18/16 14:38> Problem List - Problems (1) Cholecystitis Assessment/Plan: POD#1 s/p laparoscopic cholecystectomy, KAROL LFTs improved, pain controlled, tolerating diet Continue oral pain medication PRN DC home to follow-up with Dr. Olson in 2 weeks Code(s): K81.9 - CHOLECYSTITIS, UNSPECIFIED <Cora Kessler - Last Filed: 09/18/16 12:45> - Problems (1) Acute cholecystitis due to biliary calculus Code(s): K80.00 - CALCULUS OF GALLBLADDER W ACUTE CHOLECYST W/O OBSTRUCTION (2) Recurrent biliary colic Code(s): K80.20 - CALCULUS OF GALLBLADDER W/O CHOLECYSTITIS W/O OBSTRUCTION <Joao Olson - Last Filed: 09/18/16 14:38>
[2016-09-18 09:58] LABS: ALBUMIN 3.2 g/dl (3.4-5.0); ALK PHOS 95 U/L (45-117); ANION GAP 6 (8-16); BILIRUBIN,TOTAL 0.9 mg/dL (0.2-1.0); CALCIUM 8.5 mg/dL (8.5-10.1); CO2 29 mmol/L (21-32); CREATININE 0.8 mg/dL (0.7-1.3); GLUCOSE,RANDOM 79 mg/dL (74-106); SGOT/AST 60 U/L (15-37); SGPT/ALT 75 U/L (12-78); TOT PROT 6.6 g/dl (6.4-8.2)
[2016-09-18] MEDS ORDERED: ENOXAPARIN NA (PORCINE) 40 MG/0.4 ML DISP.SYRIN SQ SCH ×2 (10:00)
[2016-09-18] MEDS ORDERED: CEFTRIAXONE 100 ML IVPB SCH (10:00)
[2016-09-18 11:57] VITALS: BP 124/64; PULSE 70; TEMP 97.8
--- NOTE | 2016-09-18 12:01 | DS ---
Physical Examination Vital Signs: Vital Signs Temperature 97.8 F 09/18/16 10:00 Pulse Rate 70 09/18/16 10:00 Respiratory Rate 20 09/18/16 10:00 Blood Pressure 124/64 09/18/16 10:00 O2 Sat by Pulse Oximetry (%) 99 09/18/16 08:00 Labs: CBC, BMP 09/18/16 06:45 09/18/16 06:45 Discharge Summary Reason For Visit: BILIARY COLIC Current Active Problems Acute cholecystitis due to biliary calculus (Acute) Biliary colic (Acute) Cholecystitis (Acute) Obesity (Acute) Recurrent biliary colic (Acute) Hospital Course: 21 year old with gastric sleeve admitted for billiary colic -has known history of cholelithiasis and had billiary colic 6 months ago -again presented with identical symptoms -no evidence of cholycystisis on sono -s/p lap julien by general surgery attending; patient tolerated procedure well -discharge with surgery follow up as an outpatient I spent greater than 50 minutes preparing this discharge - Instructions Referrals: Joao Olson MD [Staff Physician] - 2 Weeks - Home Medications Comprehensive Discharge Medication List: Ambulatory Orders Oxycodone HCl/Acetaminophen [Percocet 5-325 mg Tablet] 1 - 2 tab PO Q6H #28 tab MDD 4 09/17/16 This patient is new to me today: No Emergency Visit: Yes ED Registration Date: 09/17/16 Care time: The patient presented to the Emergency Department on the above date and was hospitalized for further evaluation of their emergent condition. Critical Care patient: No - Discharge Referral Referred to [facility] Med P.C.: No
--- NOTE | 2016-09-18 12:29 | PN ---
Progress Note (short form) - Note Progress Note: ANESTHESIA POST-OP CHECK 21M S/P laparoscopic cholecystectomy under general anesthesia POD #1. No acute complaints, denies N/V. Pain 0/10, ambulating, tolerating PO. Vital Signs Temperature 97.8 F 09/18/16 10:00 Pulse Rate 70 09/18/16 10:00 Respiratory Rate 20 09/18/16 10:00 Blood Pressure 124/64 09/18/16 10:00 O2 Sat by Pulse Oximetry (%) 99 09/18/16 08:00 Active Medications Enoxaparin Sodium (Lovenox -) 40 mg SQ DAILY [facility] Last Admin: 09/18/16 10:13 Dose: 40 mg Hydromorphone HCl (Dilaudid Injection -) 1 mg IVPB Q4H PRN PRN Reason: PAIN Sodium Chloride (Normal Saline -) 1,000 mls @ 125 mls/hr IV ASDIR [facility] Last Admin: 09/18/16 10:13 Dose: 125 mls/hr Ondansetron HCl (Zofran Injection) 4 mg IVPB Q4H PRN PRN Reason: NAUSEA AND/OR VOMITING Oxycodone HCl (Roxicodone -) 10 mg PO Q4H PRN PRN Reason: SEVERE PAIN Stop: 09/18/16 14:24 Gen: Awake, alert No apparent anesthesia complications. Pain well controlled. Continue management as per primary team.
--- NOTE | 2016-09-20 12:14 | PATH ---
Surgical Pathology Report Patient Name: MAR HERNANDEZ Med. Rec. #: [id number] /Age/Gender: 1995 (Age: 21) / M Account: [id number] Location: [facility] MED/SURG Taken: 09/17/2016 Received: 09/19/2016 Reported: 09/20/2016 Physicians: Joao Olson M.D. Specimen(s) Received GALLBLADDER Clinical History Biliary colic Final Diagnosis GALLBLADDER, CHOLECYSTECTOMY: CHRONIC CHOLECYSTITIS AND CHOLELITHIASIS. BENIGN PERICYSTIC LYMPH NODE PRESENT. Electronically Signed Manuel Carrion M.D. Gross Description Received in formalin, labeled "gallbladder," is a 6.5 x 2.7 x 2.4 cm. gallbladder with a 0.2 cm. in length portion of cystic duct attached. There is a 0.5 cm in greatest dimension morrison periductal lymph node present. The outer surface is morrison green and varies from smooth to shaggy. The lumen contains green, tenacious bile as well as abundant yellow, irregular choleliths ranging from 0.1-0.4 cm in greatest dimension. The mucosa is dark green and velvety. The wall of the gallbladder averages 0.2 cm. in thickness. Apartment Coordinator sections including one whole lymph node are submitted in one cassette. 09/19/201609/19/2016
== END 2016-09-18 13:19 | disposition home or self-care (01) | DRG 419 ==
LOC: JER 16:28 → JERBED 22:36 → J8W 09-17 01:20 → OBSVTOIN 09-17 14:31
PROVIDERS: ADMIT Internal Medicine; ATTEND Internal Medicine
PROC: 0DNW4ZZ Release Peritoneum, Percutaneous Endoscopic Approach (ICD-10-PCS; 2016-09-17)
PROC: 0FT44ZZ Resection of Gallbladder, Percutaneous Endoscopic Approach (ICD-10-PCS; principal; 2016-09-17 12:30)
DX: K81.0 Acute cholecystitis (principal); K66.0 Peritoneal adhesions (postprocedural) (postinfection); Z98.84 Bariatric surgery status; E66.9 Obesity, unspecified; Z68.35 Body mass index [BMI] 35.0-35.9, adult
CPT/HCPCS: 36415; 76705-TC; 80053; 81003; 82150; 83690; 85025; 87040; 88304-TC; 94760; 99284-25; G0378